=== PATIENT | male | born 1950 | race Caucasian/White ===

== ENCOUNTER 2017-04-29 09:36 | Emergency (ER) | payer OTHER ==
[~2017-04-29] VITALS: Ht 177.8 cm; Wt 97.0 kg
[2017-04-29 09:59] VITALS: BP 147/77
[2017-04-29] MEDS ORDERED: DIXL10 PO (10:08)
[2017-04-29] MEDS ORDERED: [UNRECOGNIZED DRUG - MIXTURE] (10:08)
[2017-04-29] MEDS ORDERED: TRAZ-129 PO (10:08)
[2017-04-29] MEDS ORDERED: ABIL10 PO (10:08)
[2017-04-29] MEDS ORDERED: MONT10TA21 PO (10:08)
[2017-04-29] MEDS ORDERED: PRIM250T33 PO (10:08)
[2017-04-29] MEDS ORDERED: mucinex (10:08)
[2017-04-29 10:27] LABS: BASOPHILS % 0.7 % (0.0-2.0); EOSINOPHILS % 1.4 % (0.0-5.0); HEMATOCRIT. 48.5 % (42.0-52.0); HEMOGLOBIN. 17.1 g/dL (14.0-18.0); LYMPHOCYTES % 16.9 % (20.0-50.0); MEAN CORPUSCULAR HEMOGLOBIN 34.1 pg (28.0-32.0); MEAN PLATELET VOLUME 8.9 fl (7.4-10.4); MONOCYTES % 10.1 % (2.0-8.0); NEUTROPHILS % 70.9 % (40.0-76.0); PLATELET 144 x1000/uL (130-400); RED CELL DISTRIBUTION WIDTH 13.3 % (11.6-14.6)
[2017-04-29] MEDS ORDERED: METHYLPREDNISOLONE SOD SUCC 125 MG/2 ML VIAL IV STA (10:34)
[2017-04-29] MEDS ORDERED: IPRATROPIUM BROMIDE (0.02%) 0.5MG/2.5ML NEB HHN STA (10:34)
[2017-04-29] MEDS ORDERED: ALBUTEROL (0.083%) 2.5MG/3ML NEB HHN STA (10:34)
[2017-04-29 10:36] LABS: INR 1.1; PARTIAL THROMBOPLASTIN TIME 29.4 sec (23.4-31.0); PROTHROMBIN TIME 11.4 sec (9.4-11.6)
[2017-04-29 10:45] LABS: CARBON DIOXIDE 23 mEq/L (21-32); CHLORIDE 107 mEq/L (98-107); CREATINE KINASE 392 IU/L (39-308); CREATINE KINASE MB FRACTION 5.5 ng/mL (0.5-3.6); TROPONIN I < 0.02 ng/mL (0.00-0.04)
[2017-04-29] MEDS ORDERED: CEFTRIAXONE SODIUM 1 G/VIAL IM ONE (11:45)
[2017-04-29] MEDS ORDERED: LIDOCAINE HCL 1% 20ML VIAL (Pyxis) INJ ONE (12:03)
[2017-04-29] MEDS ORDERED: LIDOCAINE HCL 1% 20ML VIAL (Pyxis) INJ INFIL ONE (12:30)
== END 2017-04-29 12:27 | disposition home or self-care (01) ==
LOC: ER 10:36
DX: J20.9 Acute bronchitis, unspecified (principal); E83.51 Hypocalcemia; F32.9 Major depressive disorder, single episode, unspecified; G20 Parkinson's disease; I10 Essential (primary) hypertension; Z90.49 Acquired absence of other specified parts of digestive tract
CPT/HCPCS: 36415; 71010; 80053; 82550; 82553; 83690; 83880; 84484; 85025; 85610; 85730; 93005; 94640; 96372; 96374; 99285; J0696; J2930; J3490; J7611